=== PATIENT | male | born 1980 | race Caucasian/White ===

== ENCOUNTER 2018-09-01 12:52 | Emergency (ER) | payer BC ==
[2018-09-01] MEDS ORDERED: VANCOMYCIN HCL 1,000 MG in 0.9 % SODIUM CHLORIDE 250ML 250 ML IVPB ONE (12:59)
[2018-09-01] MEDS ORDERED: HYDROMORPHONE HCL 2 MG/ML VIAL IVP ONE (13:36)
[2018-09-01] MEDS ORDERED: ONDANSETRON HCL IV 4 MG/2 ML VIAL IVP ONE (13:51)
--- NOTE | 2018-09-01 14:21 | Emergency Department Record ---
History of Present Illness - General Chief Complaint: Laceration(s) Stated Complaint: LAC LT THUMB Time Seen by Provider: 09/01/18 12:58 Source: Patient Mode of Arrival: Ambulatory Limitations: No limitations - History of Present Illness Initial Commments: Pt from work ,self employed, with left thumb laceration on a table saw. Right hand dominate. Intense pain. No other injury. Onset/Timin -: Minutes(s) - [place] Coma Scale Eye Response: (4) Open spontaneously Motor Response: (6) Obeys commands Verbal Response: (5) Oriented [place] Total: 15 - Related Data Home Medications Medication Instructions Recorded Confirmed Last Taken Ibuprofen [Motrin] 800 mg PO Q6HR PRN 09/01/18 09/01/18 08/31/18 Valacyclovir HCl [Valtrex] 500 mg PO Q12H PRN 09/01/18 09/01/18 Unknown Previous Rx's Medication Instructions Recorded Hydrocodone/Acetaminophen [[place] 1 each PO Q4HR PRN 4 Days #10 09/01/18 5-325 Tablet] tablet Sulfamethoxazole/Trimethoprim 1 each PO BID 10 Days #20 tablet 09/01/18 [Bactrim Ds Tablet] Vancomycin HCl [Vancomycin] 125 mg PO Q6H 10 Days #40 capsule 09/01/18 Allergies Allergy/AdvReac Type Severity Reaction Status Date / Time cephalexin [From Keflex] Allergy ANAPHYLAXIS Verified 09/01/18 13:00 Penicillins Allergy ANAPHYLAXIS Verified 09/01/18 13:00 Travel Screening - Travel/Exposure Within Last 30 Days Have you traveled within the last 30 days?: No - Travel/Exposure Within Last Year Have you traveled outside the [place] in the last year?: No - Additonal Travel Details Have you been exposed to anyone with a communicable illness?: No - Travel Symptoms Symptom Screening: None Review of Systems Constitutional: Denies: Chills, Fever Eyes: Denies: Eye discharge, Photophobia ENT: Denies: Congestion, Ear pain Respiratory: Denies: Dyspnea Cardiovascular: Denies: Arrhythmia, Chest pain Endocrine: Denies: Fatigue Gastrointestinal: Denies: Abdominal pain, Nausea, Vomiting Genitourinary: Denies: Dysuria Musculoskeletal: Reports: As per HPI. Denies: Arthralgia, Back pain Neurological: Denies: Confusion, Headache, Numbness Psychiatric: Denies: Anxiety Hematological/Lymphatic: Denies: Anemia Past Medical History - SOCIAL HISTORY Smoking Status: Never smoker Alcohol Use: Occasional Drug Use: Occasional Drug Use Detail:: Marijuana - RESPIRATORY Hx Respiratory Disorders: No - CARDIOVASCULAR Hx Cardio Disorders: No - NEURO Hx Neuro Disorders: Yes Hx Headaches: Yes - GI Hx GI Disorders: No - Hx Genitourinary Disorders: No - ENDOCRINE Hx Endocrine Disorders: No - MUSCULOSKELETAL Hx Musculoskeletal Disorders: Yes Hx Arthritis: Yes - PSYCH Hx Psych Problems: Yes Hx Anxiety: Yes - HEMATOLOGY/ONCOLOGY Hx Hematology/Oncology Disorders: No Family Medical History Any Significant Family History?: Yes Hx Cancer: Grandparents Hx Heart Disease: Father, Grandparents Hx Stroke: Grandparents Physical Exam - General General Appearance: Alert, Oriented x3, Cooperative, Severe distress Limitations: No limitations - Head Head exam: Atraumatic - Eye Eye exam: Normal appearance, PERRL - ENT ENT exam: Normal exam, Mucous membranes moist, Normal external ear exam, Normal orophraynx, TM's normal bilaterally - Neck Neck exam: Normal inspection, Full ROM. negative: Tenderness - Respiratory Respiratory exam: Normal lung sounds bilaterally. negative: Respiratory distress - Cardiovascular Cardiovascular Exam: Regular rate, Normal rhythm, Normal heart sounds - GI/Abdominal GI/Abdominal exam: Soft, Normal bowel sounds. negative: Tenderness - Extremities Extremities exam: Other (left thumb with 3.5cm "fish mouth" type laceration of pad of thumb down to bone. Lac runs margin of the thumb nail ulnar aspect. ) - Neurological Neurological exam: Alert, Normal gait, Oriented X3 - Psychiatric Psychiatric exam: Normal affect, Normal mood - Skin Skin exam: Normal color Course Vital Signs 09/01/18 09/01/18 13:03 13:57 Temperature 98.3 F Pulse Rate [ 68 Pulse Ox Probe] Respiratory 24 20 Rate Blood Pressure 116/79 120/78 [Right Arm] Pulse Ox 99 100 - Reevaluation(s) Reevaluation #1: 09/01/18 14:[address] Ramírez - pictures sent. Plan for office in AM and OR to follow tomorrow. Wound irrigated and tacked close as per note. Tubex guaze after adaptic . Pt had itching in ED. Benadryl given IV. Plan for home is Bactrim po. DO NOT take Vancomycin.... [place] for pain. Procedures - Nerve Block Consent Obtained: Verbal consent Time Out Performed: Yes Local Anesthetic Used: Marcaine 0.25% Side: Left Nerve Blocks: Digital Procedure Successful: Yes Complications: None Patient Tolerated Procedure: Good Medical Decision Making - Management Options MDM Management: Additional Work-up Planned (e.g. ADM/Transfer/OP Study) - Data Complexity MDM Data: X-Ray Ordered and/or Reviewed - Radiology Data Radiology results: Image reviewed -: Radiology Exam Interpreted by Myself Disposition Disposition: Discharge Clinical Impression: Open fracture of phalanx of left thumb Disposition: Home, Self-Care Condition: (2) Stable Additional Instructions: MAINTAIN DRESSING CLEAN AND DRY AT ALL TIMES! DR. RAMÍREZ'S OFFICE AT 8AM TOMORROW SCHEDULED. [place] for pain, Vancomycin as instructed. Return as needed to the ED. Prescriptions: Hydrocodone/Acetaminophen [[place] 5-325 Tablet] 1 each PO Q4HR PRN 4 Days #10 tablet PRN Reason: Pain - Moderate (5-7) Sulfamethoxazole/Trimethoprim [Bactrim Ds Tablet] 1 each PO BID 10 Days #20 tablet Vancomycin HCl [Vancomycin] 125 mg PO Q6H 10 Days #40 capsule Referrals: AVIVA RAMÍREZ M.D. [MEDICAL DOCTOR] - Forms: Patient Portal Access Time of Disposition: 14:21 Quality - Quality Measures Quality Measures: N/A - Blood Pressure Screening Does Patient Have Any of the Following: No Blood Pressure Classification: Normal BP Reading Systolic Measurement: 114 Diastolic Measurement: 72 Screening for High Blood Pressure: < Normal BP, F/U Not Required > [G8783] Pre-Hypertensive Follow-up Interventions: Follow-up with rescreen every year. Laceration - Other - Time Out Informed consent:: Informed consent obtained Confirmed first & last name, , procedure, correct site?: Yes Start Date:: 09/01/18 Start Time:: 14:22 - Location Location of laceration:: Left Laceration located on:: Finger Laceration digit detail:: 1st Length of laceration:: 3.5 Length of laceration:: cm Finger Tip: 1 - left thumb: 3.5cm laceration "fish mouth" into deep subcut tissue to bone. No FB seen. - Clean and Prep Laceration cleaning method:: Cleansed, Copious Irrigation Laceration cleaning agent:: Normal Saline - Local Anesthetic Comment: digit block as documented. - Medication Medicated for procedure?: Yes Medication(s) administered:: Hydromorphine Administration route(s):: IV Comment: 1mg Dilaudid - Procedural Detail Tissue detail:: Torn Foreign body in the wound?: No Undermining was preformed?: No Stent applied?: No Tri applied?: No Retention suture(s) applied?: No Skin suture pattern:: Interrupted Suture material/size:: 3-0: Nylon (4 sutures) Number of skin sutures:: 4 Sub Q suture pattern:: Interrupted Number of sub Q sutures:: 0 Number muscle sutures:: 0 Number of fascia sutures:: 0 - Post Procedural Detail Complications:: No Procedure Tolerated by Patient:: Well
[2018-09-01] MEDS ORDERED: DIPHENHYDRAMINE HCL 50 MG/ML VIAL IVP ONE (14:25)
--- NOTE | 2018-09-04 04:51 | RADIOLOGY REPORT ---
DATE: 09/01/2018. EXAM: LEFT THUMB RADIOGRAPHS. HISTORY: Traumatic injury distal thumb. TECHNIQUE: Three views of the left thumb. COMPARISON: None. FINDINGS: Gauze material superimposes the thumb. Soft tissue injury/ laceration at the tip of the thumb. Minimally displaced comminuted fracture of the thumb distal phalangeal tuft. Cluster of punctate radiodensities within the distal thumb soft tissues distal to the phalangeal tuft; may represent tiny fracture fragments versus foreign debris. IMPRESSION: ABOVE JOB NUMBER: [id number] [facility]
== END 2018-09-01 15:10 | disposition home or self-care (01) ==
LOC: ER 12:52
DX: S62.522B Displaced fracture of distal phalanx of left thumb, initial encounter for open fracture (principal); W31.2XXA Contact with powered woodworking and forming machines, initial encounter; Y99.0 Civilian activity done for income or pay
CPT/HCPCS: 64450 ×2; 99284 ×2; 96374; 96375; 73140; J2405; J3370; J1170; J1200; J7050